=== PATIENT | female | born 1995 ===

== ENCOUNTER → 2017-07-10 | Outpatient (CLI) | payer OTHER ==
[~2017-07-10] MED LIST: AMOCLA500 PO; Cleocin HCl300 MG PO; Keflex500 MG PO; Norco 5-325 Ta1 EACH PO; Percocet 5-3251 EACH PO; Zofran4 MG PO
[2017-07-11 14:19] LABS: Source Cervix
== END ==
LOC: LAB 17:03
PROVIDERS: Registered Nurse Community Health
DX: Z12.4 Encounter for screening for malignant neoplasm of cervix (principal)
CPT/HCPCS: G0123